=== PATIENT | female | born 1985 | race Caucasian/White ===

== ENCOUNTER → 2024-09-27 | Outpatient (CLI) | payer OTHER, SELFPAY ==
--- NOTE | 2024-09-27 13:45 | XR_ITS ---
Examination: Screening digital mammography, bilateral Computer aided detection 3-D breast Tomosynthesis, bilateral Date and time of exam: 05/30/2024 1334 hours Indication: Screening Technique: Nonmagnified MLO, CC views of the breasts to been obtained, reconstructed from 3-D Tomosynthesis images. R2 computer aided detection program utilized for evaluation of suspicious masses and/or abnormal calcifications. 3-D Tomosynthesis images obtained. Findings: The breasts are extremely dense, which limits the sensitivity of mammography No suspicious masses or suspicious microcalcifications Impression: BI-RADS category II: Benign Findings. Recommend 1 year follow-up mammogram.
== END | disposition home or self-care (01) ==
PROVIDERS: PCP Specialist; Referring Provider Specialist; Visit Provider Specialist
DX: Z12.31 Encounter for screening mammogram for malignant neoplasm of breast (principal); R92.323 Mammographic fibroglandular density, bilateral breasts
CPT/HCPCS: 77063; 77067

== ENCOUNTER → 2024-11-20 | Outpatient (CLI) | payer OTHER, SELFPAY ==
--- NOTE | 2024-11-20 | XR_ITS ---
Examination: Bilateral hips, AP pelvis, 5 views Technique: AP, lateral views both hips, AP pelvis, 5 views Exam date and time: November 20, 2024 11:50 AM INDICATIONS: Right hip joint clicking 3 months. FINDINGS: No hip or pelvic fracture No hip dislocations Mild narrowing hip joints IMPRESSION: Mild narrowing hip joints As clinically warranted, MRI right hip without contrast follow-up would best assess for labral tear
--- NOTE | 2024-11-20 | XR_ITS ---
Examination: Knee, right , 3 views Technique: Knee AP, lateral, oblique 3 views Date and time of exam: November 20, 2024 1150 hours INDICATIONS: Right knee pain years. FINDINGS: Mild osteopenia. Mild narrowing medial joint space No fracture or dislocation IMPRESSION: Mild narrowing medial joint space
--- NOTE | 2024-11-20 | XR_ITS ---
Examination: Lumbar spine, 5 views Technique: Lumbar spine AP, lateral, coned lateral lower lumbar spine, bilateral obliques 5 views Exam date and time: November 20, 2024 1150 hours INDICATIONS: Low back pain radiating down the legs months FINDINGS: Normal bone density. Adequate alignment lumbar vertebral bodies. No lumbar fracture No lumbar disc narrowing No spondylolisthesis IMPRESSION: No lumbar fracture or lumbar disc narrowing
--- NOTE | 2024-11-20 | XR_ITS ---
Examination: Bilateral AP knees standing single view TECHNIQUE: Bilateral AP knees standing single view Date and time: November 20, 2024 11:52 AM INDICATIONS: Right knee pain 5 years. FINDINGS: Mild osteopenia. No fracture or dislocation involving either knee On this study no significant joint narrowing IMPRESSION: On this study no significant joint narrowing
--- NOTE | 2024-11-20 10:00 | XR_ITS ---
Examination: Breast ultrasound complete, bilateral Date and time of exam: November 20, 2024 1024 hours INDICATIONS: Baseline screening given dense breast architecture on mammography Technique: Real-time grayscale ultrasonographic imaging bilateral breasts, including all 4 quadrants as well as nipple retroareolar and axillary regions. Findings: Sonographic images right and left breast demonstrated no cystic or solid masses IMPRESSION: BI-RADS Category 1: Negative studies
== END | disposition home or self-care (01) ==
PROVIDERS: PCP Specialist; Referring Provider Specialist; Visit Provider Specialist
DX: M54.50 Low back pain, unspecified (principal); M25.861 Other specified joint disorders, right knee; M25.852 Other specified joint disorders, left hip; M25.851 Other specified joint disorders, right hip; R92.30 Dense breasts, unspecified
CPT/HCPCS: 72110; 73523; 73560; 73562; 73564; 73565; 76641

== ENCOUNTER 2025-03-21 08:29 | Outpatient (AMB) | payer OTHER, MEDICAID, SELFPAY ==
[2025-03-21 08:42] VITALS: BP 110/77; PULSE 84; RESP 19; TEMP 36.7; O2SAT 98; BMI 19.9
--- NOTE | 2025-03-21 08:42 | PD.ORTHCLVIS ---
Vital signs 03/21/25 08:42 Height 1.63 m Height Method Stated Weight 52.617 kg Weight Measurement Method Standing Scale BMI 19.9 BP 110/77 Blood Pressure Source Automatic Cuff Blood Pressure Location Left Upper Arm Position Sitting Respiration 19 Pulse 84 Pulse Source Monitor Temp 98.0 F Temp Source Temporal Artery Scan Pulse Oximetry (%) 98 Oxygen Delivery Method Room Air Med/Allergies Allergies & Medications Allergies No Known Allergies Allergy (Unknown, Uncoded 03/21/25 08:43) Medication Reconciliation meloxicam 7.5 mg tablet 7.5 mg PO QDAY #45 tabs 03/21/25 [Rx] Exam Exam Patient is in no acute distress and is cooperative with the examination today. Breathing is nonlabored. Patient has a normal mood and affect. The patient has a gait that is nonantalgic Bilateral extremities were evaluated and demonstrates sensation intact to light touch. Palpable pedal pulses are present. No significant edema is present. Bilateral hips were examined. The patient has no pain with log roll of the hips. Internal rotation to 30 degrees and external rotation to 30 degrees is painless. Negative FADIR. Left knee was examined today. The left knee is in reasonable alignment. Range of motion from 0-120 degrees. Knee is stable to varus and valgus as well as AP translation with <5mm. Patient has a negative McMurrays. There is no pain with patellofemoral compression and no crepitus noted. The knee is nontender to palpation. The right knee was also examined. The right knee is in neutral alignment. Range of motion from 0-120 degrees. Knee is stable to varus and valgus as well as AP translation with <5mm. Patient has a negative McMurrays. There is no pain with patellofemoral compression and no crepitus noted. The knee is nontender to palpation diffusely. There is no excessive lateral translation Assessment and Plan Problem List (1) Patellofemoral syndrome of right knee: Status: Acute Plan: ASSESSMENT AND PLAN 1. Right knee pain: The symptoms suggest anterior knee pain from patellofemoral syndrome, likely due to quadriceps imbalance. X-rays do not indicate early-onset arthritis. A home exercise program will be provided to strengthen the vastus medialis muscle. An anti-inflammatory medication will be prescribed for use as needed, once daily. Running can be continued but pain should be the guide. 2. Sciatica: The pain radiating from the hip down to the ankle is consistent with sciatica. Symptoms are expected to resolve over time. An anti-inflammatory medication will be prescribed for use as needed, once daily. If symptoms persist, an MRI may be considered to check for nerve impingement. 3. Hip click: The hip click is likely due to the IT band moving over the bone, common in individuals with less soft tissue. This condition is not typically painful and does not currently require intervention. Stretching exercises for the IT band are recommended to potentially reduce the clicking. 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 ([id number]) MA Intake Visit Data Collection New Patient or Established: New Patient (never been to [facility]) Reason for Visit:: RIGHT KNEE PAIN Seen by Clinical Staff ONLY (RN/MA): No PCP or OBGYN visit in last 3 months: Yes Hx Now: No Do You Feel Safe at Home: Yes Authorities Contacted: N/A Questionairres Past Medical History Past Medical History Have you ever been diagnosed with any of the following: Neurological Problems Cerebrovascular Accident (CVA): No Transient Ischemic Attacks (TIA): No Dementia: No Alzheimer's Disease: No Parkinson's Disease: No Brain Tumor: No Meningitis: No Seizures: No Epilepsy: No Multiple Sclerosis: No Cerebral Palsy: No Amyotrophic Lateral Sclerosis (ALS/Eulalia Gehrig's): No Guillain-Clifford Syndrome: No Spina Bifida: No Paralysis: No Peripheral Neuropathy: No Flaherty's Palsy: No Subdural Hematoma: No Migraine: No Head Trauma: No Spinal Cord Injury: No Traumatic Brain Injury: No Cardiology Problems Myocardial Infarction: No Cardiac Arrhythmia: No Atrial Fibrillation: No Angina: No Heart Murmur: No Coronary Artery Disease: No Atherosclerotic Heart Disease: No Peripheral Vascular Disease: No Hypercholesterolemia: No Aneurysm: No Congestive Heart Failure: No Congenital Heart Disease: No Valvular Heart Disease: No Rheumatic Fever: No Cardiomyopathy: No Edema: No Pericarditis: No Cellulitis: No Deep Vein Thrombosis: No Hypertension: No Hypotension: No Varicose Veins: No Respiratory Problems Chronic Obstructive Pulmonary Disease (COPD): No Asthma: No Bronchitis: No Emphysema: No Pneumonia: No Pulmonary Fibrosis: No Tuberculosis: No Pulmonary Embolism: No Pulmonary Edema: No Sleep Apnea: No CPAP Dependent: No Respiratory Aspiration: No Dyspnea: No Orthopnea: No Hx Cough: No Cough: No Wheezing: No Chest Deformities: No Smoking: No Smoking Cessation Counseling: No Smoking Exposure: No Tobacco Use: No Clubbing: No Exposure to Respiratory Irritants: No Intubation: No Stomache/Intestinal Problems Liver Cancer: No Hepatitis: No Cirrhosis: No Pancreatic Cancer: No Pancreatitis: No Celiac Disease: No Gall Bladder Disease: No Gastrointestinal Bleed: No Esophageal Varices: No Lee's Esophagus: No Colitis: No Ulcerative Colitis: No Diverticulitis: No Diverticulosis: No Ulcer: No Colorectal Cancer: No Irritable Bowel: No Crohn's Disease: No Obstructive Bowel: No Hiatal Hernia: No Hemorrhoids: No Gastroesophageal Reflux Disease: No Polyps: No Obesity: No Genital/Urinary Problems Chronic Kidney Disease: No Renal Disease: No Kidney Stones: No Polycystic Kidney Disease: No Neurogenic Bladder: No Inguinal Hernia: No Dialysis: No Reproductive Problems Breast Cancer: No Endometriosis: No Fibroids: No Genital Herpes: No Gonorrhea: No Pelvic Inflammatory Disease: No Polycystic Ovarian Syndrome: No Previous Pregnancies: No Syphilis: No Uterine Prolapse: No Musculoskeletal Problems Myasthenia Gravis: No Marfan's Syndrome: No Bone Cancer: No Rheumatoid Arthritis: No Osteoporosis: No Degenerative Disk Disease: No Gout: No Scoliosis: No Carpal Tunnel Syndrome: No Fibromyalgia: No Fractures: No Degenerative Joint Disease: No Osteomyelitis: No Poliovirus: No Head,Eye,Nose,Throat Problems Cataracts: No Glaucoma: No Blind: No Retinal Detachment: No Macular Degeneration: No Chronic Ear Infections: No Deafness: No Eye Prosthesis: No Endocrine Problems Diabetes Mellitus Type 1: No Diabetes Mellitus Type 2: No Subjective Visit Visit for: new patient and knee (RIGHT) Immunization / Flu Flu Vaccine in the Last 12 Months: No Flu Vaccine Exclusion Criteria: Already Received History of Present Illness Chief complaint: RIGHT KNEE PAIN Date of injury / onset of symptoms: 2020 HISTORY OF PRESENT ILLNESS IMelecio, have obtained verbal consent from the patient, to be recorded during this encounter which may include, but not limited to, medical history, examination, treatment plans, and relevant health information.? Patient was informed that recording will be read and reviewed by myself before inclusion in the medical chart. The patient is a 39-year-old female who presents for evaluation of right knee pain. She has been experiencing intermittent right knee pain since 2019, which is exacerbated by walking, running, or sleeping. The pain is predominantly localized to the anterior aspect of the knee. She reports that the pain is not constant but tends to worsen during physical activities such as running. Despite being an active individual, she finds it challenging to engage in regular exercise due to her responsibilities as a [id number] mother of 10 children. She has not received any injections or undergone physical therapy for this condition. Previous attempts at managing the pain with ibuprofen have proven ineffective. Recent standing x-rays were performed. She was previously informed by her physician that she may have early-onset arthritis, a diagnosis she disagrees with. She has a family history of arthritis and expresses concern about the potential development of this condition. Additionally, she experiences pain radiating from her hip to her ankle, which she attributes to prolonged standing, inadequate footwear, and stress. This pain is particularly severe at night, often disrupting her sleep. She has found some relief with orthotics and notes that the pain is less severe when she is barefoot or wearing flip-flops. She also reports a sensation of a tendon sliding over her hip with each step, a symptom that has recently developed. She does not experience any associated numbness or tingling. She also reports cramping in her hands, particularly when writing, which she attributes to an improper sole rounder. She does not experience any weakness in her hands but notes that the pain is so severe that it often forces her to stop writing. She does not experience any difficulty with typing. Personal History Occupation: [employer] Hobbies: EXERCISE Pain Pain level (0-10): 2 Pain duration: ON AND OFF Pain location: anterior Pain quality: dull and aching Pain timing: night, increases with activity and stairs Associated signs & symptoms: none Ambulatory data Ambulatory device: none Treatments Number of previous injections: 0 Improvement with previous injections: No Number of Physical Therapy sessions: 0 Improvement with PT: No Improvement with NSAIDS: no Review of Systems Review of Systems: All systems negative unless otherwise noted in HPI.
== END 2025-03-21 08:58 | disposition home or self-care (01) ==
LOC: HODSRG 08:29
PROVIDERS: PCP Specialist; Referring Provider Specialist; Supervising Provider Orthopaedic Surgery Adult Reconstructive Orthopaedic Surgery; Visit Provider Orthopaedic Surgery Adult Reconstructive Orthopaedic Surgery
DX: M22.2X1 Patellofemoral disorders, right knee (principal); M25.561 Pain in right knee; M54.30 Sciatica, unspecified side
CPT/HCPCS: 99204; G0463